=== PATIENT | female | born 1960 ===

== ENCOUNTER 2018-07-06 10:54 | Emergency (ER) | payer MEDICARE ==
[2018-07-06 11:08] VITALS: BP 159/95; PULSE 100; RESP 16; TEMP 98; O2SAT 100
--- NOTE | 2018-07-06 11:58 | C.PDOC ---
History Of Present Illness 57 year old female presents to the emergency department with complaints of pain to the left side of lower jaw since yesterday. Patient states that her mouth has been swelling since onset. Otherwise, patient denies any fever, chills, headache, dizziness, nausea, or vomiting. Time Seen by Provider: 07/06/18 11:25 Chief Complaint (Nursing): Dental Pain History Per: Patient History/Exam Limitations: no limitations Onset/Duration Of Symptoms: Days Current Symptoms Are (Timing): Still Present Past Medical History Reviewed: Historical Data, Nursing Documentation, Vital Signs Vital Signs: Last Vital Signs Temp 98 F 07/06/18 11:06 Pulse 100 H 07/06/18 11:06 Resp 16 07/06/18 11:06 BP 159/95 H 07/06/18 11:06 Pulse Ox 100 07/06/18 14:24 - Medical History PMH: HTN Family History: States: No Known Family Hx - Social History Hx Alcohol Use: No Hx Substance Use: No - Immunization History Hx Tetanus Toxoid Vaccination: No Hx Influenza Vaccination: No Hx Pneumococcal Vaccination: No Review Of Systems Except As Marked, All Systems Reviewed And Found Negative. Constitutional: Negative for: Fever, Chills ENT: Positive for: Mouth Swelling Cardiovascular: Negative for: Chest Pain Respiratory: Negative for: Shortness of Breath Gastrointestinal: Negative for: Nausea, Vomiting Musculoskeletal: Positive for: Other (Pain to the left side of lower jaw) Neurological: Negative for: Weakness, Numbness, Headache, Dizziness Physical Exam - Physical Exam Appears: Non-toxic, No Acute Distress Skin: Warm, Dry, No Rash Head: Atraumatic, Normacephalic Eye(s): bilateral: Normal Inspection Ear(s): Bilateral: Normal Oral Mucosa: Moist Tongue: No Swelling, No Lesions Lips: No Swelling, No Lesions Teeth: Caries, Other (Poor dentition) Gingiva: No Abscess Throat: Normal, No Erythema, No Drooling Neck: Normal ROM, Supple Lymphatic: No Adenopathy Neurological/Psych: Oriented x3, Normal Speech, Normal Cognition ED Course And Treatment O2 Sat by Pulse Oximetry: 100 (RA) Pulse Ox Interpretation: Normal Progress Note: Motrin and penicillin administered. Patient is to follow up with dentist. Disposition - Disposition Referrals: [facility] [Outside] Disposition: HOME/ ROUTINE Disposition Time: 11:55 Condition: STABLE Additional Instructions: Follow up with PMD/dentist within 1-2 days. Return to ED if feel worse. 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 - Scribe Statement The provider has reviewed the documentation as recorded by the Scribe All medical record entries made by the Scribe were at my direction and personally dictated by me. I have reviewed the chart and agree that the record accurately reflects my personal performance of the history, physical exam, medical decision making, and the department course for this patient. I have also personally directed, reviewed, and agree with the discharge instructions and disposition.
== END 2018-07-06 12:06 | disposition home or self-care (01) ==
LOC: C.ER 10:54
DX: K02.9 Dental caries, unspecified (principal)